=== PATIENT | female | born 1965 | race Caucasian/White ===

== ENCOUNTER 2020-05-29 18:25 | Emergency (ER) | payer OTHER ==
[2020-05-29] MEDS ORDERED: Alum Hydrox/Mag Hydrox/Simeth 15 ML, Lidocaine 2% 15 ML PO ONE ×2 (19:14)
[2020-05-29] MEDS ORDERED: Metoprolol Tartrate 25 MG Tab PO ONE (19:27)
--- NOTE | 2020-05-29 20:00 | EDM.PDOC ---
ED HPI GENERAL MEDICAL PROBLEM - General Chief Complaint: Chest Pain Stated Complaint: CHEST PAIN Time Seen by Provider: 05/29/20 18:50 Source of Information: Reports: Patient History Limitations: Reports: No Limitations - History of Present Illness INITIAL COMMENTS - FREE TEXT/NARRATIVE: pt arrived with a history of pressure in the middle of her lower chest and shoulder pain. She is on lisinopril for her bp/ She is using priolosec bid for the reflux. She feels like she is doing some better since she wenmt on it, Onset: Today Duration: Hour(s): Location: Reports: Chest, Other ( bp was quite high this pm. ) Associated Symptoms: Reports: Chest Pain, Other ( this was more of a pressure. ) - Related Data Allergies Allergy/AdvReac Type Severity Reaction Status Date / Time No Known Allergies Allergy Verified 05/29/20 18:44 Home Meds: Home Meds Famotidine 1 tab PO DAILY 05/29/20 [History] Montelukast [Singulair] 1 tab PO DAILY 05/29/20 [History] lisinopriL [Lisinopril] 1 tab PO DAILY 05/29/20 [History] Past Medical History Cardiovascular History: Reports: Hypertension Gastrointestinal History: Reports: GERD Social & Family History - Tobacco Use Tobacco Use Status *Q: Never Tobacco User ED ROS GENERAL - Review of Systems Review Of Systems: See Below Constitutional: Reports: No Symptoms HEENT: Reports: No Symptoms Respiratory: Reports: No Symptoms Cardiovascular: Reports: No Symptoms, Other ( chest pressure in the middle of the chest. ) GI/Abdominal: Reports: No Symptoms : Reports: No Symptoms Musculoskeletal: Reports: No Symptoms Skin: Reports: No Symptoms Neurological: Reports: No Symptoms Hematologic/Lymphatic: Reports: No Symptoms ED EXAM, GENERAL - Physical Exam Exam: See Below Free Text/Narrative:: pt arrived with pain in the mid lower chest. At nite she is getting pain in the shoulders that will awaken her. Exam Limited By: No Limitations General Appearance: Alert, Anxious Ears: Normal TMs Nose: Normal Inspection Throat/Mouth: Normal Inspection Head: Sinus Tenderness Neck: Normal Inspection Respiratory/Chest: No Respiratory Distress Cardiovascular: Regular Rate, Rhythm GI/Abdominal: Soft, Non-Tender (Female) Exam: Deferred Rectal (Female) Exam: Deferred Back Exam: Normal Inspection Extremities: Normal Inspection Neurological: Alert, Oriented, Normal Cognition Psychiatric: Normal Affect Course - Vital Signs Last Recorded V/S: Last Vital Signs Temp 36.4 C 05/29/20 18:56 Pulse 72 05/29/20 19:02 Resp 14 05/29/20 19:02 BP 179/77 H 05/29/20 19:02 Pulse Ox 98 05/29/20 19:02 - Orders/Labs/Meds Orders: Active Orders 24 hr Category Date Time Status EKG Documentation Completion [RC] ASDIRECTED Care 05/29/20 18:45 Active UA W/MICROSCOPIC [URIN] Urgent Lab 05/29/20 18:45 Ordered EKG 12 Lead [EK] Routine Ther 05/29/20 18:45 Ordered Labs: Laboratory Tests 05/29/20 05/29/20 05/29/20 Range/Units 18:44 19:10 19:10 WBC 8.2 (4.5-11.0) K/uL RBC 4.66 (3.30-5.50) M/uL Hgb 15.0 (12.0-15.0) g/dL Hct 43.9 (36.0-48.0) % MCV 94 (80-98) fL MCH 32 H (27-31) pg MCHC 34 (32-36) % Plt Count 267 (150-400) K/uL Neut % (Auto) 52 (36-66) % Lymph % (Auto) 37 (24-44) % [place] % (Auto) 8 H (2-6) % Eos % (Auto) 2 (2-4) % Baso % (Auto) 1 (0-1) % Sodium 140 (140-148) mmol/L Potassium 3.3 L (3.6-5.2) mmol/L Chloride 103 (100-108) mmol/L Carbon Dioxide 25 (21-32) mmol/L Anion Gap 15.3 H (5.0-14.0) mmol/L BUN 13 (7-18) mg/dL Creatinine 1.1 H (0.6-1.0) mg/dL Est Cr Clr Drug Dosing 46.68 mL/min Estimated GFR (MDRD) 51 L (>60) Glucose 98 (74-106) mg/dL Calcium 8.9 (8.5-10.1) mg/dL Total Bilirubin 0.9 (0.2-1.0) mg/dL AST 21 (15-37) U/L ALT 19 (12-78) U/L Alkaline Phosphatase 55 (46-116) U/L Troponin I < 0.017 (0.000-0.056) ng/mL Total Protein 7.4 (6.4-8.2) g/dL Albumin 4.0 (3.4-5.0) g/dL Globulin 3.4 (2.3-3.5) g/dL Albumin/Globulin Ratio 1.2 (1.2-2.2) Meds: Medications Discontinued Medications Generic Name Dose Route Start Last Admin Trade Name Freq PRN Reason Stop Dose Admin Al Hydroxide/Mg Hydroxide 15 0 ml 05/29/20 19:14 05/29/20 19:18 ml/ Lidocaine HCl 15 ml PO 05/29/20 19:15 30 ml ONETIME ONE Administration Metoprolol Tartrate 25 mg 05/29/20 19:27 Lopressor PO 05/29/20 19:28 ONETIME ONE - Re-Assessments/Exams Free Text/Narrative Re-Assessment/Exam: 05/29/20 20:06 pt did have GI cocktail and she is feeling better. She does not feel like this was very dramatic. but in the end she felt better. Departure - Departure Time of Disposition: 19:57 Disposition: Home, Self-Care 01 Condition: Fair Clinical Impression: Acid reflux, Hypertension Referrals: PCP,None [Primary Care Provider] - Forms: ED Department Discharge Care Plan Goals: continue with prilosec bid. , rtc for a exercise cardiolyte. increase lisinpril to 10 mg qam and 5 mg in the afternoon. See regular povider in the next week. Sepsis Event Note (ED) - Evaluation Sepsis Screening Result: No Definite Risk - Focused Exam Vital Signs: Vital Signs Temp Pulse Resp BP Pulse Ox 05/29/20 19:02 72 14 179/77 H 98 05/29/20 18:56 36.4 C 79 15 194/96 H 98 05/29/20 18:41 36.4 C 69 15 174/77 H 98 - My Orders Last 24 Hours: My Active Orders 05/29/20 18:45 EKG Documentation Completion [RC] ASDIRECTED UA W/MICROSCOPIC [URIN] Urgent EKG 12 Lead [EK] Routine - Assessment/Plan Last 24 Hours: My Active Orders 05/29/20 18:45 EKG Documentation Completion [RC] ASDIRECTED UA W/MICROSCOPIC [URIN] Urgent EKG 12 Lead [EK] Routine
== END 2020-05-29 20:22 | disposition home or self-care (01) ==
LOC: JP.ED 18:25
DX: K21.9 Gastro-esophageal reflux disease without esophagitis (principal); I10 Essential (primary) hypertension; Z79.899 Other long term (current) drug therapy
CPT/HCPCS: 36415; 80053; 84484; 85025; 93005; 93010; 99285; A9270

== ENCOUNTER 2023-05-06 07:26 | Day surgery (SDC) | payer OTHER ==
[2023-05-06] MEDS ORDERED: Propofol 200 MG/20 ML SDV ONE (07:44)
[2023-05-06] MEDS ORDERED: fentaNYL 50 MCG/ML SDV ONE (07:44)
[2023-05-06] MEDS ORDERED: Midazolam 1 MG/ML 2 ML SDV ONE (07:44)
[2023-05-06] MEDS ORDERED: Lactated Ringers 1,000 ML IV SCH (08:00)
== END 2023-05-06 10:16 | disposition home or self-care (01) ==
LOC: JP.SDS 07:26
PROVIDERS: ATTEND Student in an Organized Health Care Education/Training Program
DX: Z12.11 Encounter for screening for malignant neoplasm of colon (principal); K57.30 Diverticulosis of large intestine without perforation or abscess without bleeding; K21.9 Gastro-esophageal reflux disease without esophagitis; I10 Essential (primary) hypertension
CPT/HCPCS: J2250; J2704; J3010; J7120